=== PATIENT | male | born 1995 | race Caucasian/White ===

== ENCOUNTER 2024-03-02 16:35 | Inpatient (IN) | payer OTHER ==
[2024-03-02 17:01] VITALS: BMI 24.6
[2024-03-02] MEDS ORDERED: guaiFENesin 600 MG TABLET.ER (FP) PO PRN (17:20)
[2024-03-02] MEDS ORDERED: BISMUTH SUBSALICYLATE 524 MG/30 ML PO PRN (17:20)
[2024-03-02] MEDS ORDERED: IBUPROFEN 400 MG TABLET (FP) PO PRN (17:20)
[2024-03-02] MEDS ORDERED: IBUPROFEN 600 MG TABLET (FP) PO PRN (17:20)
[2024-03-02] MEDS ORDERED: MAG HYDROX/AL HYDROX/SIMETH 30 ML UNIT-DOSE CUP PO PRN (17:20)
[2024-03-02] MEDS ORDERED: BENZOCAINE/MENTHOL (CHLORASEPTIC ) LOZENGE MM PRN (17:20)
[2024-03-02] MEDS ORDERED: DICYCLOMINE HCL 10 MG CAPSULE PO PRN (17:20)
[2024-03-02] MEDS ORDERED: POLYETHYLENE GLYCOL (HEALTHYLAX) 3350 17 GM PACKET PO PRN (17:20)
[2024-03-02] MEDS ORDERED: ACETAMINOPHEN 325 MG TABLET (FP) PO PRN (17:20)
[2024-03-02] MEDS ORDERED: MAGNESIUM HYDROX 2400MG/30ML ORAL SUSPENSION 30 ML CUP PO PRN (17:20)
[2024-03-02] MEDS ORDERED: BENZONATATE 200 MG CAPSULE PO PRN (17:20)
[2024-03-02] MEDS ORDERED: LOPERAMIDE HCL 2 MG CAPSULE PO PRN (17:20)
[2024-03-02] MEDS ORDERED: chlordiazePOXIDE HCL 25 MG CAPSULE PO PRN (17:22)
[2024-03-02] MEDS: METOPROLOL TARTRATE 25 MG TABLET (FP) PO ONE (18:00)
[2024-03-02] MEDS ORDERED: chlordiazePOXIDE HCL 25 MG CAPSULE ONE (18:13)
[2024-03-02] MEDS: chlordiazePOXIDE HCL 25 MG CAPSULE PO SCH (18:15)
[2024-03-02] MEDS: METHOCARBAMOL 500 MG TABLET PO PRN (18:33)
[2024-03-02] MEDS: THIAMINE 100 MG TABLET PO SCH (21:47)
[2024-03-02] MEDS: levETIRAcetam 500 MG TABLET (FP) PO SCH (21:47)
[2024-03-02] MEDS: MELATONIN 5 MG TABLETS PO SCH (21:47)
[2024-03-03] MEDS: PRENATAL VITAMINS W/ FOLIC ACID TABLET (FP) PO SCH (10:50)
[2024-03-03] MEDS: amLODIPine BESYLATE 5 MG TABLET (FP) PO SCH (11:15)
[2024-03-03 12:05] LABS: HEMATOCRIT 43.4 % (35.4-49); HEMOGLOBIN 14.7 GM/dL (11.7-16.9); MCH 30.3 pg (25.7-33.7); MCHC 33.9 g/dl (32.0-35.9); MEAN CELL VOLUME 89.5 fl (80-96); MEAN PLT VOLUME 8.2 fl (7.5-11.1); PLATELET COUNT 229 10^3/uL (134-434); RBC 4.85 M/mm3 (4.00-5.60); RDW 14.5 % (11.9-15.9); WHITE BLOOD COUNT 6.4 K/mm3 (4.0-10.0)
[2024-03-03 12:13] LABS: CALCIUM 9.7 mg/dL (8.5-10.1)
[2024-03-03 12:15] LABS: BLOOD UREA NITROGEN 12.4 mg/dL (7-18)
[2024-03-03 12:17] LABS: CREATININE 0.7 mg/dL (0.55-1.3)
[2024-03-03 12:18] LABS: BILIRUBIN,TOTAL 2.2 mg/dL (0.2-1); TOT PROT 7.7 g/dl (6.4-8.2)
[2024-03-03] MEDS: NALTREXONE HCL 50 MG TABLET PO SCH (12:41)
[2024-03-03 17:22] VITALS: BP 128/74; PULSE 87; RESP 16; TEMP 97.9
[2024-03-03] MEDS: ONDANSETRON *ODT* 4 MG TABLET SL PRN (17:48)
[2024-03-04] MEDS ORDERED: chlordiazePOXIDE HCL 25 MG CAPSULE PO SCH (05:00)
[2024-03-05] MEDS ORDERED: chlordiazePOXIDE HCL 10 MG CAPSULE PO PRN
[2024-03-05] MEDS ORDERED: chlordiazePOXIDE HCL 10 MG CAPSULE PO SCH (05:00)
[2024-03-06] MEDS ORDERED: chlordiazePOXIDE HCL 10 MG CAPSULE PO SCH (05:00)
[2024-03-07] MEDS ORDERED: chlordiazePOXIDE HCL 10 MG CAPSULE PO ONE (05:00)
== END 2024-03-03 20:20 | disposition left against medical advice (07) | DRG 770 ==
LOC: YASAS 16:35 → Y6N 17:52
PROVIDERS: ADMIT Allergy & Immunology; ATTEND Surgery
PROC: HZ2ZZZZ Detoxification Services for Substance Abuse Treatment (ICD-10-PCS; principal; 2024-03-02)
DX: F10.230 Alcohol dependence with withdrawal, uncomplicated (principal); F41.9 Anxiety disorder, unspecified; I10 Essential (primary) hypertension
CPT/HCPCS: 36415; 80053; 80305; 80307; 85027; 86780; 93005; 93010; Q0162